=== PATIENT | female | born 1990 | race Caucasian/White ===

== ENCOUNTER 2020-08-26 14:06 | Emergency (ER) | payer OTHER ==
[~2020-08-26 14:06] MED LIST: NORCO 5-325 TA1 EACH PO
[2020-08-26 15:13] LABS: HEMOGLOBIN 14.7 gm/dl (12.3-15.3); RED BLOOD COUNT 4.68 M/UL (4.00-5.10); WHITE BLOOD COUNT 9.6 K/UL (4.5-11.0)
[2020-08-26 15:38] LABS: BUN/CREATININE RATIO 10 (0-10)
[2020-08-26] MEDS ORDERED: NAPROSYN500 MG PO (16:29)
[2020-08-26] MEDS ORDERED: CYCLOBENZAPRINE10 MG PO (16:29)
== END 2020-08-26 16:45 | disposition home or self-care (01) ==
LOC: ER1 14:06
PROVIDERS: Physician Assistant Medical
DX: M54.5 Low back pain (principal); Z91.041 Radiographic dye allergy status
CPT/HCPCS: 72100; 80053; 81001; 85025; 96372; 99284; J1885; J2930

== ENCOUNTER 2021-05-08 08:02 | Emergency (ER) | payer BC ==
[~2021-05-08 08:02] MED LIST changes: +CYCLOBENZAPRINE10 MG PO; +NAPROSYN500 MG PO
[2021-05-08 08:58] LABS: HEMOGLOBIN 14.8 gm/dl (12.3-15.3); RED BLOOD COUNT 4.84 M/UL (4.00-5.10); WHITE BLOOD COUNT 7.2 K/UL (4.5-11.0)
[2021-05-08 09:14] LABS: BUN/CREATININE RATIO 9 (0-10)
== END 2021-05-08 11:00 | disposition home or self-care (01) ==
LOC: ER1 08:02
PROVIDERS: Student in an Organized Health Care Education/Training Program
DX: J02.9 Acute pharyngitis, unspecified (principal); R05.9 Cough, unspecified; Z20.822 Contact with and (suspected) exposure to COVID-19
CPT/HCPCS: 0240U; 71045; 80048; 85025; 87081; 87880; 99283